=== PATIENT | male | born 1970 | race Caucasian/White ===

== ENCOUNTER 2019-03-22 21:40 | Emergency (ER) | payer OTHER ==
[2019-03-22] MEDS ORDERED: NORMAL SALINE 1000 ML 1,000 ML IV ONE (22:08)
[2019-03-22] MEDS ORDERED: ONDANSETRON HCL INJ/PF 4 MG/2 ML SDV IV ONE (22:08)
[2019-03-22] MEDS ORDERED: LIDOCAINE 2% VISCOUS SOLN 20 ML UDCUP PO ONE (22:11)
[2019-03-22] MEDS ORDERED: MAG HYDROX/AL HYDROX/SIMETH SUSP 30 ML UDCUP PO ONE (22:11)
[2019-03-22] MEDS ORDERED: METOCLOPRAMIDE HCL ORAL SOLN 10 MG/10 ML UDCUP PO ONE (22:11)
--- NOTE | 2019-03-22 22:16 | ER Document Report ---
ED Medical Screen (RME) - General Chief Complaint: Pain All Over Stated Complaint: TOTAL BODY PAIN Time Seen by Provider: 03/22/19 22:00 Notes: Patient is a 48-year-old male who presents to the emergency department with a chief complaint of abdominal pain. Patient states that the pain is in his mid lower abdomen. Patient admits to having stomach ulcers in the past. States he is having nausea, vomiting, and diarrhea. Patient states that he has been living out of his car. Patient also admits to wanting to hurt "those people," but did not elaborate on who "to those people" were. Exam: Grandiose thinking. Exaggerated speaking. Mildly tender mid upper abdomen. I have greeted and performed a rapid initial assessment of this patient. A comprehensive ED assessment and evaluation of the patient, analysis of test results and completion of medical decision making process will be conducted by an additional ED providers. TRAVEL OUTSIDE OF THE [place] IN LAST 30 DAYS: No - Related Data Allergies/Adverse Reactions: No Known Allergies Allergy (Verified 03/22/19 22:00) Past Medical History Psychiatric Medical History: Reports: Hx Bipolar Disorder Past Surgical History: Reports: Hx Orthopedic Surgery - R knee
[2019-03-22 22:51] LABS: ABSOLUTE BASOPHILS # (AUTO) 0.1 10^3/uL (0.0-0.2); ABSOLUTE EOSINOPHILS # (AUTO) 0.2 10^3/uL (0.0-0.6); ABSOLUTE LYMPHOCYTES (AUTO) 2.1 10^3/uL (0.5-4.7); ABSOLUTE MONOCYTES (AUTO) 0.8 10^3/uL (0.1-1.4); ABSOLUTE NEUT (AUTO) 11.1 10^3/uL (1.7-8.2); BASOPHILS % (AUTO) 0.7 % (0-2); EOSINOPHILS % (AUTO) 1.1 % (0-6); HEMATOCRIT 38.5 % (37.9-51.0); HEMOGLOBIN 12.6 g/dL (13.5-17.0); LYMPHOCYTES % (AUTO) 14.9 % (13-45); MEAN CORPUSCULAR HEMOGLOBIN 26.2 pg (27.0-33.4); MEAN CORPUSCULAR HGB CONC 32.8 g/dL (32.0-36.0); MEAN CORPUSCULAR VOLUME 80 fl (80-97); MONOCYTES % (AUTO) 5.8 % (3-13); PLATELET COUNT 371 10^3/uL (150-450); RED BLOOD COUNT 4.82 10^6/uL (4.35-5.55); RED CELL DISTRIBUTION WIDTH 17.6 % (11.5-14.0); SEGMENTED NEUTROPHILS % (AUTO) 77.5 % (42-78); TOTAL CELLS COUNTED % (AUTO) 100 %; WHITE BLOOD COUNT 14.3 10^3/uL (4.0-10.5)
[2019-03-22] MEDS ORDERED: MORPHINE SULFATE 10 MG/ML INJ IV ONE (22:57)
[2019-03-22 23:06] LABS: ALBUMIN 4.3 g/dL (3.5-5.0); ALKALINE PHOSPHATASE 71 U/L (38-126); ANION GAP 9 (5-19); ASPARTATE AMINO TRANSFERASE 25 U/L (17-59); BILIRUBIN,DIRECT 0.1 mg/dL (0.0-0.4); BILIRUBIN,TOTAL 0.2 mg/dL (0.2-1.3); BLOOD UREA NITROGEN 10 mg/dL (7-20); CARBON DIOXIDE 31 mmol/L (22-30); CHLORIDE 99 mmol/L (98-107); GLUCOSE 102 mg/dL (75-110); POTASSIUM 4.3 mmol/L (3.6-5.0); TOTAL PROTEIN 6.9 g/dL (6.3-8.2)
[2019-03-22 23:12] LABS: ACETAMINOPHEN < 10 ug/mL (10-30); ALCOHOL < 10 mg/dL (NONE DETECTED); SALICYLATE < 1.0 mg/dL (2.0-20.0)
--- NOTE | 2019-03-22 23:51 | ER Document Report ---
ED General - General Chief Complaint: Psych Problem Stated Complaint: TOTAL BODY PAIN Time Seen by Provider: 03/22/19 22:00 Primary Care Provider: CHUYITA SCHREIBER MD [ACTIVE STAFF] - Follow up in 3-5 days (local gi physician) Notes: Patient is a 48-year-old male that presents to the emergency department for chief complaint of abdominal pain. Patient states he has been having abdominal pain for the past 2 days, has been getting worse. He states he has on and off pain for over 20 years in his abdomen, states he has a history of pancreatitis in the past. He said some nausea, vomiting diarrhea associated with this as well. He currently rates his pain as a 10 out of 10, describes as severe, aching and constant and all over his abdomen. Denies any recent fevers, chills, night sweats, chest pain or difficulty breathing. Past Medical History: Pancreatitis Past Surgical History: Denies any recent or pertinent surgical history Social History: Denies alcohol use, tobacco use, but admits to drinking lots of coffee, and uses THC. Family History: Reviewed and noncontributory for presenting illness Allergies: Reviewed, see documented allergy list. REVIEW OF SYSTEMS: Other than noted above, the 12 point review of systems was reviewed with the patient and were negative, all pertinent findings are included in the HPI. PHYSICAL EXAMINATION: Vital signs reviewed, nursing noted reviewed. GENERAL: Patient appears uncomfortable on exam, writhing. HEAD: Atraumatic, normocephalic. EYES: Eyes appear normal, extraocular movements intact, sclera anicteric, conjunctiva are normal. ENT: nares patent, oropharynx clear without exudates. Moist mucous membranes. NECK: Normal range of motion, supple without lymphadenopathy LUNGS: Breath sounds clear to auscultation bilaterally and equal. No wheezes rales or rhonchi. HEART: Regular rate and rhythm without murmurs ABDOMEN: Soft, diffusely tender to palpate, normoactive bowel sounds. No rebound, guarding, or rigidity. No masses appreciated. EXTREMITIES: Nontender, good range of motion, no pitting or edema. NEUROLOGICAL: No focal neurological deficits. Moves all extremities spontaneously Motor and sensory grossly intact on exam. PSYCH: Appears to be in pain, answers questions appropriately, but does have some tangential thinking. SKIN: Warm, Dry, normal turgor, no rashes or lesions noted on exposed skin TRAVEL OUTSIDE OF THE [place] IN LAST 30 DAYS: No - Related Data Allergies/Adverse Reactions: No Known Allergies Allergy (Verified 03/22/19 22:00) Past Medical History - Social History Smoking Status: Current Every Day Smoker Chew tobacco use (# tins/day): No Frequency of alcohol use: Rare Drug Abuse: None Family History: Reviewed & Not Pertinent Patient has suicidal ideation: No Patient has homicidal ideation: Yes Psychiatric Medical History: Reports: Hx Bipolar Disorder Past Surgical History: Reports: Hx Orthopedic Surgery - R knee Physical Exam - Vital signs Vitals: Resp Pulse Ox 22 H 100 03/22/19 22:36 03/22/19 22:36 Course - Re-evaluation Re-evalutation: Patient seen and examined vital signs reviewed. Laboratory data and/or imaging were ordered as appropriate for the patient's presenting symptoms and complaint, with consideration of any critical or life threatening conditions that may be associated with their obtained history and exam as noted above. Patient was treated with IV fluids, Zofran and morphine Results were reviewed when available and demonstrated mild leukocytosis, with elevation of lipase around 800, CT imaging of the abdomen and pelvis was negative for acute findings, patient likely has a mild case of pancreatitis which she has a history of in the past. The patient was re-evaluated and was improved, able to tolerate p.o., took a GI cocktail as well, the patient seemed remarkably better on my repeat evaluation, discussed at length with the discharge with the patient, if he felt comfortable with that, which he states he was he states he has Zofran at home as well. Patient did have tangential thinking, but was answering questions appropriately, and was not actively having delusions on my evaluation, I do not feel that he needs to be IVC at this time, but advised he should follow-up with an outpatient provider. Evaluation was most consistent with abdominal pain, mild pancreatitis. Results were discussed with the patient at this point, after careful consideration I feel that that patient can be discharged from the emergency department, the patient was educated treatments and reasons to return to the emergency department based on their presumed diagnosis as noted above, they were advised to followup with a primary care physician in 2-3 days. Patient was agreeable to plan of care. *Note is created using voice recognition software and may contain spelling, syntax or grammatical errors. Laboratory 03/22/19 03/22/1903/22/19 22:38 22:38 22:38 WBC 14.3 H RBC 4.82 Hgb 12.6 L Hct 38.5 MCV 80 MCH 26.2 L MCHC 32.8 RDW 17.6 H Plt Count 371 Lymph % (Auto) 14.9 [place] % (Auto) 5.8 Eos % (Auto) 1.1 Baso % (Auto) 0.7 Absolute Neuts (auto) 11.1 H Absolute Lymphs (auto) 2.1 Absolute Monos (auto) 0.8 Absolute Eos (auto) 0.2 Absolute Basos (auto) 0.1 Seg Neutrophils % 77.5 Sodium 138.6 Potassium 4.3 Chloride 99 Carbon Dioxide 31 H Anion Gap 9 BUN 10 Creatinine 0.81 Est GFR ( Amer) > 60 Est GFR (MDRD) Non-Af > 60 Glucose 102 Calcium 10.0 Total Bilirubin 0.2 Direct Bilirubin 0.1 Neonat Total Bilirubin Not Reportable Neonat Direct Bilirubin Not Reportable Neonat Indirect Bili Not Reportable AST 25 ALT 17 Alkaline Phosphatase 71 Total Protein 6.9 Albumin 4.3 Lipase 866.9 H Salicylates < 1.0 L Acetaminophen < 10 L Serum Alcohol < 10 Abdomen/Pelvis CT 03/22/19 22:58 IMPRESSION: No acute abnormality is identified. Nonspecific gastric distention - Vital Signs Vital signs: Temp Pulse Resp BP Pulse Ox 98.3 F 13 142/91 H 100 03/22/19 22:42 03/23/19 00:07 03/23/19 00:07 03/23/19 00:07 - Laboratory Result Diagrams: 03/22/19 22:38 03/22/19 22:38 Laboratory results interpreted by me: 03/22/19 03/22/19 03/22/19 22:38 22:38 22:38 WBC 14.3 H Hgb 12.6 L MCH 26.2 L RDW 17.6 H Absolute Neuts (auto) 11.1 H Carbon Dioxide 31 H Lipase 866.9 H Salicylates < 1.0 L Acetaminophen < 10 L - EKG Interpretation by Me Additional EKG results interpreted by me: EKG demonstrates sinus rhythm with a ventricular rate of 80 bpm, normal axis, normal intervals, no evidence of acute ischemia in this EKG. Discharge - Discharge Clinical Impression: Pancreatitis, acute Qualifiers: Pancreatitis type: unspecified pancreatitis type Acute pancreatitis complication: no infection or necrosis Qualified Code(s): K85.90 - Acute pancr eatitis without necrosis or infection, unspecified Condition: Stable Disposition: HOME, SELF-CARE Instructions: Pancreatitis ([facility]) Additional Instructions: If you develop more nausea please take the Zofran you have been prescribed at home, if you have a GI cocktail continue this as well as well as the pantoprazole you have been previously prescribed. If you have any worsening of your symptoms, do not hesitate to return to the emergency department to be reevaluated. Otherwise please follow-up with a primary care physician or your GI physician. Referrals: CHUYITA SCHREIBER MD [ACTIVE STAFF] - Follow up in 3-5 days (local gi physician)
--- NOTE | 2019-03-23 00:19 | RADIOLOGY REPORT (SQ) ---
EXAM DESCRIPTION: CT ABDOMEN PELVIS WITH IV CONTRAST COMPLETED DATE/TME: 03/22/2019 22:58 CLINICAL HISTORY: 48 years Male diffuse abdominal pain. CREAT 0.81 COMPARISON: 12/12/2014. TECHNIQUE: Contiguous axial images obtained through the abdomen and pelvis following IV contrast. Reformatted images obtained. This exam was performed according to our department optimization program which includes automated exposure control, adjustment of the mA and/or kv according to patient size and/or use of iterative reconstruction technique. FINDINGS: The liver appears unremarkable. The spleen and pancreas appear unremarkable. No adrenal masses. The kidneys appear unremarkable. No hydronephrosis. The gallbladder is visualized. No aneurysmal dilatation of the aorta. No bowel obstruction. The appendix is unremarkable. No significant free fluid noted. Distended stomach. Vascular calcification in aorta and its branches. IMPRESSION: No acute abnormality is identified. Nonspecific gastric distention
[2019-03-23 00:43] LABS: URINE AMPHETAMINES SCREEN NEGATIVE; URINE BARBITURATES SCREEN NEGATIVE; URINE BENZODIAZEPINES SCREEN NEGATIVE; URINE COCAINE SCREEN NEGATIVE; URINE MARIJUANA (THC) SCREEN UNCONFIRMED POSITIVE; URINE METHADONE SCREEN NEGATIVE; URINE PHENCYCLIDINE SCREEN NEGATIVE
[2019-03-23 01:00] VITALS: BP 162/88
[2019-03-23 01:06] LABS: AMORPHOUS SEDIMENT,URINE TRACE /HPF; APPEARANCE,URINE CLOUDY; BILIRUBIN,URINE NEGATIVE (NEGATIVE); COLOR,URINE YELLOW; GLUCOSE, URINE NEGATIVE (NEGATIVE); KETONES,URINE NEGATIVE (NEGATIVE); LEUKOCYTE ESTERASE,URINE NEGATIVE (NEGATIVE); NITRITE,URINE NEGATIVE (NEGATIVE); PROTEIN,URINE NEGATIVE (NEGATIVE); URINE SPECIFIC GRAVITY 1.024; UROBILINOGEN,URINE NEGATIVE mg/dL (<2.0)
--- NOTE | 2019-03-23 23:04 | EKG REPORT ---
SEVERITY:- BORDERLINE ECG - SINUS ARRHYTHMIA, RATE 61-89 BORDERLINE T ABNORMALITIES, ANT-LAT LEADS : Confirmed by: Jenn Tsang 23-Mar-2019 23:04:03
== END 2019-03-23 01:00 | disposition home or self-care (01) ==
LOC: ER 21:40
DX: K85.90 Acute pancreatitis without necrosis or infection, unspecified (principal); R10.9 Unspecified abdominal pain; R11.2 Nausea with vomiting, unspecified; R19.7 Diarrhea, unspecified; F17.200 Nicotine dependence, unspecified, uncomplicated
CPT/HCPCS: 93005; 99284; 96361; 96374; 36415; 80307 ×4; 83690; 85025; 80053; 81001; 74177; 93010; J3490; J2270; J7030